=== PATIENT | female | born 1940 | race Caucasian/White ===

== ENCOUNTER → 2016-09-12 | Outpatient (CLI) | payer MEDICARE, BC ==
[~2016-09-12] MED LIST: CALCIUM500 MG PO; COLACE-DPS100 MG PO; COUMADIN2.5 MG PO; COUMADIN5 MG PO; CRESTOR10 MG PO; CRESTOR20 MG PO; GLUCAGON HCL1 MG PO; GLUCOPHAGE-DPS500 MG PO; GLUCOPHAGE1000 MG PO; GLUCOTROL DPS10 MG PO; GLUCOTROL DPS5 MG PO; GLUTOSE 1537.5 GM PO; IMODIUM DPS2 MG PO; LEVEMIR100 UNIT/1 SQ; MAALOX DPS30 ML PO; METAMUCIL FIBE3.4 GM PO; MILK OF MAGNESI10 ML PO; NEOSPORIN-DPS15 GM TP; NORVASC DPS10 MG PO; NOVOLOG100 UNIT/2 SQ; TENORMIN DPS50 MG PO; THERA1 EACH PO; TOUJEO SOL300 UNIT/1 SQ; TYLENOL DPS325 MG PO; TYLENOL EXTRA500 M1 PO; ZESTORETIC 20/11 TAB PO
== END | disposition home or self-care (01) ==
LOC: RAD.S 10:14
DX: Z12.31 Encounter for screening mammogram for malignant neoplasm of breast (principal); R92.1 Mammographic calcification found on diagnostic imaging of breast